=== PATIENT | male | born 1990 | race African-American/Black ===

== ENCOUNTER 2020-10-01 15:00 | Emergency (ER) | payer OTHER ==
[~2020-10-01] VITALS: Ht 165.1 cm; Wt 81.6 kg
[2020-10-01 16:07] LABS: PLATELET COUNT 189 K/uL (142-355)
[2020-10-01 16:16] LABS: POTASSIUM 3.5 mmol/L (3.6-5.2)
[2020-10-01 17:26] VITALS: BP 129/79; TEMP 99.7
== END 2020-10-01 17:31 | disposition home or self-care (01) ==
LOC: ED 15:00
PROVIDERS: Hospitalist
DX: R10.32 Left lower quadrant pain (principal); K52.89 Other specified noninfective gastroenteritis and colitis
CPT/HCPCS: 36415; 80053; 81000; 82150; 83690; 85027; 96365; 96375; 99284; J1885; J2405; J3490